=== PATIENT | female | born 1965 | race Caucasian/White ===

== ENCOUNTER 2021-05-28 19:27 | Emergency (ER) | payer MEDICARE ==
[~2021-05-28 19:27] MED LIST: AMITIZA24 MCG PO; ATARAX25 MG PO; BACTRIM DS TAB1 EACH PO; BENADRYL25 MG PO; BENTYL10 MG PO; BUSPAR5 MG PO; CARAFATE1 GM PO; CELEXA40 MG PO; DEXILANT60 MG PO; ELAVIL25 MG PO; ESCITALOPRAM OX10 MG PO; FLEXERIL10 MG PO; GABAPENTIN600 MG PO; HYDROCORTISONE30 G4 TOP; K-DUR20 MEQ PO; KLONOPIN1 MG PO; OXY-IR 5MG5 MG PO; OXYCODONE HCL30 MG PO; PRAVACHOL20 MG PO; PRINIVIL10 MG PO; TOPAMAX50 MG PO; TRAZODONE 100M100 MG PO; ZONEGRAN100 MG PO
[2021-05-29] MEDS ORDERED: OXY-IR 5MG5 MG PO (01:26)
== END 2021-05-29 03:24 | disposition home or self-care (01) ==
LOC: FER 19:27
DX: S92.324A Nondisplaced fracture of second metatarsal bone, right foot, initial encounter for closed fracture (principal); S92.334A Nondisplaced fracture of third metatarsal bone, right foot, initial encounter for closed fracture; S92.344A Nondisplaced fracture of fourth metatarsal bone, right foot, initial encounter for closed fracture; I10 Essential (primary) hypertension; F17.200 Nicotine dependence, unspecified, uncomplicated; Z88.1 Allergy status to other antibiotic agents; Z88.5 Allergy status to narcotic agent; X50.1XXA Overexertion from prolonged static or awkward postures, initial encounter; Y92.009 Unspecified place in unspecified non-institutional (private) residence as the place of occurrence of the external cause
CPT/HCPCS: 73590; 73630